=== PATIENT | male | born 1955 | race Caucasian/White ===

== ENCOUNTER → 2018-08-30 | Outpatient (CLI) | payer MEDICAID | LOC: FIMAGING 13:18 | PROVIDERS: ATTEND Family Medicine | DX: I25.10 Atherosclerotic heart disease of native coronary artery without angina pectoris (principal); K76.9 Liver disease, unspecified; J98.4 Other disorders of lung; R06.09 Other forms of dyspnea; Z77.29 Contact with and (suspected) exposure to other hazardous substances ==